=== PATIENT | female | born 1935 | race Caucasian/White ===

== ENCOUNTER → 2016-09-02 | Outpatient (CLI) | payer OTHER, MEDICARE ==
--- NOTE | 2016-09-02 20:10 | DX ---
Lumbar Spine, Four Views, Including Flexion and Extension History: Previous lumbar fusion. Technique: AP, lateral neutral, lateral flexion, and lateral extension views of the lumbar spine. Comparison: March 2016. Findings: Mild dextroscoliosis. Bilateral transpedicular screws and fusion rods at the L1, L2, L3, L4, and L5 levels, with hardware appearing intact. Interspinous expanders at L4-L5 and L5-S1. Flexi on and extension views demonstrate no evidence of instability. Interbody grafts from L1-L2 through L 4-L5. Mild compression deformity of the L5 vertebral body appears similar to the previous study. Impression: L1-L5 diskectomies and posterior fusion, without definite instability on the flexion and extension views.
== END ==
LOC: FIMAGING 14:03
PROVIDERS: ATTEND Physician Assistant Surgical
DX: M43.26 Fusion of spine, lumbar region (principal)

== ENCOUNTER → 2016-09-06 | Outpatient (CLI) | payer OTHER, MEDICARE ==
--- NOTE | 2016-09-06 12:03 | US ---
Limited Right Upper Quadrant Ultrasound History: Right upper quadrant pain. Comparison: None available. Findings: There is a homogeneous echogenic 2.7 x 2.0 x 2.1 cm structure in the right hepatic lobe. Th e liver is otherwise normal. There is no intrahepatic biliary dilatation. The common bile duct measur es 5 mm and is normal. The gallbladder is normal. The right kidney measures approximately 9.6 cm and has normal echotexture and contour without hydronephrosis. The inferior pole of the right kidney is p artially obscured by bowel gas. The visible aorta is normal caliber with moderate atherosclerosis. Th e visible portions of the pancreas are normal with limited visualization of the pancreatic head and t ail. Impression: 1. No visible etiology for the patient's pain. 2. 2.7 cm echogenic right hepatic mass statistically likely to represent a hemangioma, however, incom pletely characterized by ultrasound. Contrast-enhanced MR or multiphasic CT could be performed for de finitive characterization. 3. Aortic atherosclerosis.
== END ==
LOC: CIMAGING 10:13
PROVIDERS: ATTEND Internal Medicine Gastroenterology
DX: R16.0 Hepatomegaly, not elsewhere classified (principal); I70.0 Atherosclerosis of aorta; R10.11 Right upper quadrant pain
CPT/HCPCS: 76705-PO

== ENCOUNTER → 2017-04-21 | Outpatient (CLI) | payer OTHER, MEDICARE | LOC: CIMAGING 09:24 | PROVIDERS: ATTEND Internal Medicine | DX: M17.12 Unilateral primary osteoarthritis, left knee (principal); E03.9 Hypothyroidism, unspecified; I10 Essential (primary) hypertension | CPT/HCPCS: 73560-PO; 80053-PO; 80061-PO; 84443-PO; 90662-PO; G0008-PO ==

== ENCOUNTER → 2017-08-20 | Outpatient (CLI) | payer OTHER, MEDICARE | LOC: FIMAGING 14:39 | PROVIDERS: ATTEND Physician Assistant Surgical | DX: Z98.1 Arthrodesis status (principal) ==

== ENCOUNTER → 2017-09-12 | Outpatient (CLI) | payer OTHER, MEDICARE ==
[~2017-09-12] MED LIST: GADOBUTROL 10 ML VIAL IVP ONE
== END ==
LOC: FIMAGING 14:11
PROVIDERS: ATTEND Physician Assistant Surgical
DX: M51.26 Other intervertebral disc displacement, lumbar region (principal); R16.0 Hepatomegaly, not elsewhere classified; Z98.1 Arthrodesis status
CPT/HCPCS: 72158; A9585

== ENCOUNTER 2017-11-17 15:45 | Inpatient (IN) | payer OTHER, MEDICARE ==
[2017-11-18] MEDS ORDERED: MAGNESIUM HYDROXIDE 30 ML UDCUP PO PRN (17:58)
[2017-11-18] MEDS ORDERED: LACTULOSE 20 GM/30 ML UDCUP PO PRN (17:58)
[2017-11-18] MEDS ORDERED: diphenhydrAMINE 25 MG CAP PO PRN (17:58)
[2017-11-18] MEDS ORDERED: BISACODYL 10 MG SUPP PR PRN (17:58)
[2017-11-18] MEDS: METHOCARBAMOL 750 MG TAB PO PRN (18:51)
[2017-11-18] MEDS: SENNOSIDES/DOCUSATE SODIUM TAB PO SCH (20:10)
[2017-11-18] MEDS: CHOLECALCIFEROL VIT D3 1,000 UNITS TAB PO SCH (20:10)
[2017-11-18] MEDS: FAMOTIDINE 20 MG TAB PO SCH (20:10)
[2017-11-18] MEDS: oxyCODONE IR 5 MG TAB PO PRN ×2 (21:30→23:20)
[2017-11-18] MEDS: ACETAMINOPHEN 325 MG TAB PO SCH (21:30)
[2017-11-18] MEDS: ONDANSETRON DISINTEGRATING 4 MG TAB PO PRN (21:30)
[2017-11-18] MEDS: POLYETHYLENE GLYCOL 3350 17 GM PKT PO SCH (21:30)
[2017-11-18] MEDS ORDERED: ceFAZolin 2 GM/DEXTROSE 100 ML IV SCH (22:00)
[2017-11-18] MEDS: ceFAZolin 2 GM/SWFI 2 GM/20 ML SYR IVP SCH (23:19)
[2017-11-19 05:10] LABS: PLATELET COUNT 192 10^3/uL (150-400)
[2017-11-19] MEDS: LEVOTHYROXINE 100 MCG TAB PO SCH (05:32)
[2017-11-19] MEDS: METHOCARBAMOL 750 MG TAB PO PRN ×3 (05:32→18:38)
[2017-11-19] MEDS: FAMOTIDINE 20 MG TAB PO SCH (06:19)
[2017-11-19] MEDS: ceFAZolin 2 GM/SWFI 2 GM/20 ML SYR IVP SCH (06:36)
--- NOTE | 2017-11-19 07:56 | SOAPPROG ---
SOAP Progress Note Assessment/Plan: Assessment: 82 yo female transferred [place] [facility] [place] after left L5/S1 BETSY and L4/5 hardware removal complicated by durotomy. Doing well today with no ESCALANTE and no evidence of leak from incision. Plan: OK for patient to take her home GERD meds Keep HOB flat until further notice from Neurosurgery Use bedpan PRN Monitor incision frequently for leak 11/19/17 07:53 11/19/17 08:23 Subjective: lying flat in bed, awake, alert, pain controlled, no ESCALANTE. Oriented x 4 Objective: Vital Signs Temp Pulse Resp BP Pulse Ox 36.9 C 71 17 160/68 H 94 11/19/17 04:00 11/19/17 04:00 11/19/17 04:00 11/19/17 04:00 11/19/17 04:00 Laboratory Results 11/19/17 04:52 11/19/17 04:52 11/18/17 11/19/17 11/20/17 05:59 05:59 05:59 Intake Total 120 Output Total 750 Balance -630 Neuro: WERNER, sens +LT follows commands speech clear Incision: CDI, no evidence of leak ICD10 Worksheet Patient Problems: Problems Problem Status Onset Fusion of lumbar spine Acute
[2017-11-19] MEDS: ONDANSETRON DISINTEGRATING 4 MG TAB PO PRN ×2 (08:59→15:16)
[2017-11-19] MEDS ORDERED: FAMOTIDINE 20 MG TAB PO SCH (09:00)
[2017-11-19] MEDS ORDERED: PANTOPRAZOLE SODIUM 40 MG TAB PO SCH (09:00)
[2017-11-19] MEDS: oxyCODONE IR 5 MG TAB PO PRN ×3 (09:02→20:43)
[2017-11-19] MEDS: ACETAMINOPHEN 325 MG TAB PO SCH ×3 (09:04→20:42)
[2017-11-19] MEDS: IRBESARTAN 150 MG TAB PO SCH (09:07)
[2017-11-19] MEDS: amLODIPine BESYLATE 5 MG TAB PO SCH (09:08)
[2017-11-19] MEDS: CYANO/VITAMIN B12 1000 MCG TAB PO SCH (09:08)
[2017-11-19] MEDS: SENNOSIDES/DOCUSATE SODIUM TAB PO SCH ×2 (09:09→20:42)
[2017-11-19] MEDS: POLYETHYLENE GLYCOL 3350 17 GM PKT PO SCH ×3 (09:10→20:43)
[2017-11-19] MEDS: ENOXAPARIN 40 MG/0.4 ML SYR SC SCH (09:10)
--- NOTE | 2017-11-19 09:43 | ASMTCMCOM ---
CM Note CM Note Notes: Pt in for back surgery, per RN will need to lay flat for a few days until further notice from neurology. Pt lives at home w/, CM w/f. DC Plan: TBD Date Signed: 11/19/2017 09:42 AM Electronically Signed By:Linda Olivo RN
--- NOTE | 2017-11-19 10:31 | PDMN ---
Medical Necessity Medical necessity: est los>2mn s/p L L5/S1 BETSY and L4/5 hardware removal at [facility] [place] , complicated by durotomy; admit with HOB flat, frequent monitoring of incision for leak, and frequent neuro checks; per order and progress note 11/18/17
[2017-11-19] MEDS: CHOLECALCIFEROL VIT D3 1,000 UNITS TAB PO SCH (20:42)
[2017-11-19] MEDS: ONDANSETRON 4 MG/2 ML VIAL IVP PRN (20:43)
[2017-11-19] MEDS: Ranitidine Hcl [Zantac] 300 MG PO SCH (20:44)
[2017-11-20] MEDS: ONDANSETRON DISINTEGRATING 4 MG TAB PO PRN (02:22)
[2017-11-20] MEDS: oxyCODONE IR 5 MG TAB PO PRN ×4 (02:22→16:45)
[2017-11-20] MEDS: LEVOTHYROXINE 100 MCG TAB PO SCH (06:22)
--- NOTE | 2017-11-20 06:51 | NEUSURGPN ---
Date of Surgery: 11/18/17 Post Op Day: 2 Assessment/Plan: Assessment: 82 yo female transferred from [facility] [place] on 11/18/17 after left L5/S1 BETSY and L4/5 hardware removal complicated by durotomy POD #2 Plan: -doing well today with no ESCALANTE and no evidence of leak from incision -CDI -OK for patient to take her home GERD meds -keep HOB flat until further notice from Neurosurgery-likely for 1 week -ok to log roll -use bedpan PRN -d/w Dr Carroll -call with any questions or concerns -monitor incision frequently for leak -pt understands and agrees Subjective: Awake and alert. NAD. Eating/drinking and voiding. No f/c/n/v/d. Objective: AAO x 3, PERRLA/EOMI no droop CN 2-12 grossly intact +lt touch MARGA x 4 CDI Neuro Check Frequency: per routine Urinary Catheter in Place: No - Physician Discussed Patient with : Jose Alberto Patient Seen by : Jose Alberto Neurosurgery Physical Exam - Vitals, I&O, Labs I and O 11/19/17 11/20/17 11/21/17 05:59 05:59 05:59 Intake Total 120 1050 Output Total 750 1750 Balance -630 -700 Weight 51.71 kg Intake: Oral (ml) 120 1050 Output: Urine (ml) 750 1750 Bedpan 750 1750 Other: Intake Quantity Yes Yes Sufficient Number of Voids Bedpan 1 1 Vital Signs Temp Pulse Resp BP Pulse Ox 36.8 C 68 16 133/63 H 93 11/20/17 03:37 11/20/17 03:37 11/20/17 03:37 11/20/17 03:37 11/20/17 03:37 Laboratory Results 11/19/17 04:52 11/19/17 04:52 ICD10 Worksheet Patient Problems: Problems Problem Status Onset Fusion of lumbar spine Acute
[2017-11-20] MEDS: SENNOSIDES/DOCUSATE SODIUM TAB PO SCH ×2 (08:24→21:53)
[2017-11-20] MEDS: ENOXAPARIN 40 MG/0.4 ML SYR SC SCH (08:24)
[2017-11-20] MEDS: CYANO/VITAMIN B12 1000 MCG TAB PO SCH (08:25)
[2017-11-20] MEDS: POLYETHYLENE GLYCOL 3350 17 GM PKT PO SCH ×4 (08:25→21:53)
[2017-11-20] MEDS: IRBESARTAN 150 MG TAB PO SCH (08:25)
[2017-11-20] MEDS: ACETAMINOPHEN 325 MG TAB PO SCH ×3 (08:26→22:02)
[2017-11-20] MEDS: amLODIPine BESYLATE 5 MG TAB PO SCH (08:26)
[2017-11-20] MEDS: OMEPRAZOLE 20 MG PO SCH (08:30)
[2017-11-20] MEDS: METHOCARBAMOL 750 MG TAB PO PRN ×3 (08:33→18:39)
[2017-11-20] MEDS: CHOLECALCIFEROL VIT D3 1,000 UNITS TAB PO SCH (21:51)
[2017-11-20] MEDS: Ranitidine Hcl [Zantac] 300 MG PO SCH (21:51)
[2017-11-21] MEDS: oxyCODONE IR 5 MG TAB PO PRN ×4 (01:50→21:59)
[2017-11-21] MEDS: METHOCARBAMOL 750 MG TAB PO PRN ×3 (01:50→21:59)
[2017-11-21] MEDS: ONDANSETRON DISINTEGRATING 4 MG TAB PO PRN ×2 (01:54→17:06)
[2017-11-21] MEDS: LEVOTHYROXINE 100 MCG TAB PO SCH (05:52)
--- NOTE | 2017-11-21 07:42 | SOAPPROG ---
SOAP Progress Note Assessment/Plan: Post Op Day: 3 Assessment/Plan: Assessment: 82 yo female transferred from [facility] [place] on 11/18/17 after left L5/S1 BETSY and L4/5 hardware removal complicated by durotomy Plan: -doing well today with no ESCALANTE and no evidence of leak from incision -CDI -will consider using Advil or Toradol for general achiness -keep HOB flat until 11/25 -ok to log roll -use bedpan PRN -call with any questions or concerns -monitor incision frequently for leak -pt understands and agrees Subjective: Awake and alert. NAD. Eating/drinking and voiding. Objective: AAO x 3, PERRLA/EOMI no droop CN 2-12 grossly intact +lt touch MARGA x 4 CDI 11/21/17 07:42 Objective: Vital Signs Temp Pulse Resp BP Pulse Ox 36.7 C 72 16 148/65 H 95 11/20/17 23:45 11/20/17 23:45 11/20/17 23:45 11/20/17 23:45 11/20/17 23:45 Laboratory Results 11/19/17 04:52 11/19/17 04:52 11/20/17 11/21/17 11/22/17 05:59 05:59 05:59 Intake Total 1050 850 Output Total 1750 1325 Balance -700 -475 incision: CDI, no leak ICD10 Worksheet Patient Problems: Problems Problem Status Onset Fusion of lumbar spine Acute
[2017-11-21] MEDS: CYANO/VITAMIN B12 1000 MCG TAB PO SCH (10:15)
[2017-11-21] MEDS: SENNOSIDES/DOCUSATE SODIUM TAB PO SCH ×2 (10:15→21:58)
[2017-11-21] MEDS: amLODIPine BESYLATE 5 MG TAB PO SCH (10:15)
[2017-11-21] MEDS: ACETAMINOPHEN 325 MG TAB PO SCH ×3 (10:15→21:59)
[2017-11-21] MEDS: IRBESARTAN 150 MG TAB PO SCH (10:16)
[2017-11-21] MEDS: ENOXAPARIN 40 MG/0.4 ML SYR SC SCH (10:16)
[2017-11-21] MEDS: POLYETHYLENE GLYCOL 3350 17 GM PKT PO SCH ×3 (10:16→22:00)
[2017-11-21] MEDS: OMEPRAZOLE 20 MG PO SCH (10:23)
[2017-11-21] MEDS: CHOLECALCIFEROL VIT D3 1,000 UNITS TAB PO SCH (21:59)
[2017-11-21] MEDS: Ranitidine Hcl [Zantac] 300 MG PO SCH (22:06)
[2017-11-21] MEDS: ONDANSETRON 4 MG/2 ML VIAL IVP PRN (23:22)
[2017-11-22] MEDS: LEVOTHYROXINE 100 MCG TAB PO SCH (05:11)
[2017-11-22] MEDS: ONDANSETRON 4 MG/2 ML VIAL IVP PRN ×2 (05:11→18:24)
[2017-11-22] MEDS: ENOXAPARIN 40 MG/0.4 ML SYR SC SCH (08:14)
[2017-11-22] MEDS: CYANO/VITAMIN B12 1000 MCG TAB PO SCH (08:16)
[2017-11-22] MEDS: SENNOSIDES/DOCUSATE SODIUM TAB PO SCH ×2 (08:16→20:17)
[2017-11-22] MEDS: IRBESARTAN 150 MG TAB PO SCH (08:17)
[2017-11-22] MEDS: ACETAMINOPHEN 325 MG TAB PO SCH ×3 (08:17→20:14)
[2017-11-22] MEDS: amLODIPine BESYLATE 5 MG TAB PO SCH (08:17)
[2017-11-22] MEDS: OMEPRAZOLE 20 MG PO SCH (08:18)
[2017-11-22] MEDS: POLYETHYLENE GLYCOL 3350 17 GM PKT PO SCH ×3 (08:18→20:17)
[2017-11-22] MEDS: METHOCARBAMOL 750 MG TAB PO PRN ×2 (08:23→18:24)
[2017-11-22] MEDS: oxyCODONE IR 5 MG TAB PO PRN (08:23)
--- NOTE | 2017-11-22 08:58 | SOAPPROG ---
SOAP Progress Note Assessment/Plan: Post Op Day: 4 Assessment/Plan: Assessment: 82 [place] [facility] [place] left L5/S1 BETSY and L4/5 hardware removal complicated by durotomy Plan: -doing well today with no ESCALANTE and no evidence of leak from incision -pt got out of bed last night, no new issues -will consider using Advil or Toradol for general achiness -keep HOB flat until 11/25 -ok to log roll -use bedpan PRN -call with any questions or concerns -monitor incision frequently for leak -pt understands and agrees Subjective: Awake and alert. NAD. Eating/drinking and voiding. Objective: AAO x 3, PERRLA/EOMI no droop CN 2-12 grossly intact +lt touch MARGA x 4 incision: Dry Objective: Vital Signs Temp Pulse Resp BP Pulse Ox 37.0 C 99 18 136/72 H 98 11/22/17 07:24 11/22/17 07:24 11/22/17 07:24 11/22/17 07:24 11/22/17 07:24 Laboratory Results 11/19/17 04:52 11/19/17 04:52 11/21/17 11/22/17 11/23/17 05:59 05:59 05:59 Intake Total 850 300 Output Total 1325 Balance -475 300 ICD10 Worksheet Patient Problems: Problems Problem Status Onset Fusion of lumbar spine Acute
--- NOTE | 2017-11-22 14:10 | ASMTCMCOM ---
CM Note CM Note Notes: Pt still HOB flat until 11/25. Pt may need SNF. D/c needs TBD. CM to follow. Date Signed: 11/22/2017 02:09 PM Electronically Signed By:CROW Freeman
[2017-11-22] MEDS: ONDANSETRON DISINTEGRATING 4 MG TAB PO PRN (14:41)
[2017-11-22 16:15] LABS: PLATELET COUNT 220 10^3/uL (150-400)
[2017-11-22] MEDS ORDERED: SIMETHICONE DROPS 30 ML BOTTLE PO PRN (17:40)
[2017-11-22] MEDS: SIMETHICONE 80 MG TAB CHEW PO PRN (18:24)
[2017-11-22] MEDS: SODIUM CHLORIDE 1,000 MG TAB PO SCH (18:24)
[2017-11-22] MEDS: KETOROLAC 15 MG/1 ML SDV IVP PRN (18:24)
[2017-11-22] MEDS: CHOLECALCIFEROL VIT D3 1,000 UNITS TAB PO SCH (20:17)
[2017-11-22] MEDS: Ranitidine Hcl [Zantac] 300 MG PO SCH (20:18)
[2017-11-23] MEDS: METHOCARBAMOL 750 MG TAB PO PRN (05:51)
[2017-11-23] MEDS: KETOROLAC 15 MG/1 ML SDV IVP PRN (05:51)
[2017-11-23] MEDS: LEVOTHYROXINE 100 MCG TAB PO SCH (05:51)
[2017-11-23] MEDS: OMEPRAZOLE 20 MG PO SCH (05:53)
[2017-11-23] MEDS: ENOXAPARIN 40 MG/0.4 ML SYR SC SCH (08:59)
[2017-11-23] MEDS: SODIUM CHLORIDE 1,000 MG TAB PO SCH ×3 (09:00→18:09)
[2017-11-23] MEDS: amLODIPine BESYLATE 5 MG TAB PO SCH (09:00)
[2017-11-23] MEDS: SIMETHICONE 80 MG TAB CHEW PO PRN (09:00)
[2017-11-23] MEDS: CYANO/VITAMIN B12 1000 MCG TAB PO SCH (09:00)
[2017-11-23] MEDS: IRBESARTAN 150 MG TAB PO SCH (09:01)
[2017-11-23] MEDS: ACETAMINOPHEN 325 MG TAB PO SCH ×3 (09:01→22:50)
[2017-11-23] MEDS: POLYETHYLENE GLYCOL 3350 17 GM PKT PO SCH ×3 (09:40→23:00)
[2017-11-23] MEDS: SENNOSIDES/DOCUSATE SODIUM TAB PO SCH ×2 (09:40→23:00)
--- NOTE | 2017-11-23 10:40 | SOAPPROG ---
SOAP Progress Note Assessment/Plan: Post Op Day: 5 Assessment/Plan: Assessment: 82 yo female transferred from [facility] [place] on 11/18/17 after left L5/S1 BETSY and L4/5 hardware removal complicated by durotomy Plan: -doing well today with no ESCALANTE and no evidence of leak from incision -May use Advil or Toradol for general achiness -keep HOB flat until 11/25 (Friday) -ok to log roll -use bedpan PRN -call with any questions or concerns -monitor incision frequently for leak -pt understands and agrees Subjective: Awake and alert. NAD. Eating/drinking and voiding. Objective: AAO x 3, PERRLA/EOMI no droop CN 2-12 grossly intact +lt touch MARGA x 4 incision: Dry Abdominal xray yesterday did not show ileus Objective: Vital Signs Temp Pulse Resp BP Pulse Ox 36.8 C 69 16 156/71 H 99 11/23/17 07:14 11/23/17 07:14 11/23/17 07:14 11/23/17 09:01 11/23/17 07:14 Laboratory Results 11/22/17 12:20 11/23/17 04:47 11/22/17 11/23/17 11/24/17 05:59 05:59 05:59 Intake Total 300 Output Total 1450 Balance -1150 ICD10 Worksheet Patient Problems: Problems Problem Status Onset Fusion of lumbar spine Acute
[2017-11-23] MEDS: CALCIUM CARBONATE 500 MG CHEWABLE TAB PO PRN ×2 (13:21→19:25)
[2017-11-23] MEDS: Ranitidine Hcl [Zantac] 300 MG PO SCH (22:51)
[2017-11-23] MEDS: CHOLECALCIFEROL VIT D3 1,000 UNITS TAB PO SCH (22:51)
[2017-11-24] MEDS: LEVOTHYROXINE 100 MCG TAB PO SCH (06:05)
[2017-11-24] MEDS: OMEPRAZOLE 20 MG PO SCH (06:10)
[2017-11-24] MEDS: amLODIPine BESYLATE 5 MG TAB PO SCH (08:51)
[2017-11-24] MEDS: SODIUM CHLORIDE 1,000 MG TAB PO SCH ×3 (08:51→16:28)
[2017-11-24] MEDS: IRBESARTAN 150 MG TAB PO SCH (08:51)
[2017-11-24] MEDS: CYANO/VITAMIN B12 1000 MCG TAB PO SCH (08:51)
[2017-11-24] MEDS: ACETAMINOPHEN 325 MG TAB PO SCH ×3 (08:51→23:03)
[2017-11-24] MEDS: POLYETHYLENE GLYCOL 3350 17 GM PKT PO SCH ×3 (08:52→20:26)
[2017-11-24] MEDS: ENOXAPARIN 40 MG/0.4 ML SYR SC SCH (08:52)
[2017-11-24] MEDS: SENNOSIDES/DOCUSATE SODIUM TAB PO SCH ×2 (08:52→20:26)
--- NOTE | 2017-11-24 11:36 | NEUSURGPN ---
Assessment/Plan: Assessment/Plan: Assessment: 82 [place] [facility] [place] left L5/S1 BETSY and L4/5 hardware removal complicated by durotomy Plan: -doing well today with no ESCALANTE and no evidence of leak from incision -May raise HOB today more each hour. if no headache, may get out of bed once at 50 degrees and start PT/OT -May use Advil or Toradol for general achiness -call with any questions or concerns -monitor incision frequently for leak -Patient discussed with Dr. Carroll Subjective: Doing well, eager to get up. No leg pain. Objective: AAO x 3, PERRLA/EOMI no droop CN 2-12 grossly intact +lt touch MARGA x 4 incision: Dry - Physician Discussed Patient with : Jose Alberto Patient Seen by : Jose Alberto Neurosurgery Physical Exam - Vitals, I&O, Labs I and O 11/23/17 11/24/17 11/25/17 05:59 05:59 05:59 Intake Total 300 675 350 Output Total 1450 301 Balance -1150 374 350 Intake: Oral (ml) 300 675 350 Output: Urine (ml) 850 301 Bedpan 850 301 Emesis (ml) 600 Other: Intake Quantity Yes Sufficient Number of Voids Bedpan 3 1 1 Number of Stools Bedpan 1 1 1 Number of Emesis 1 Occurrences Vital Signs Temp Pulse Resp BP Pulse Ox 36.8 C 67 16 168/72 H 94 11/24/17 08:00 11/24/17 08:00 11/24/17 08:00 11/24/17 08:51 11/24/17 08:00 Laboratory Results 11/22/17 12:20 11/23/17 04:47 ICD10 Worksheet Patient Problems: Problems Problem Status Onset Fusion of lumbar spine Acute
[2017-11-24] MEDS: SIMETHICONE 80 MG TAB CHEW PO PRN (11:39)
[2017-11-24] MEDS: CHOLECALCIFEROL VIT D3 1,000 UNITS TAB PO SCH (20:25)
[2017-11-24] MEDS: Ranitidine Hcl [Zantac] 300 MG PO SCH (20:27)
[2017-11-25] MEDS: LEVOTHYROXINE 100 MCG TAB PO SCH (05:00)
--- NOTE | 2017-11-25 07:14 | NEUSURGPN ---
Date of Surgery: 11/18/17 Post Op Day: 7 Assessment/Plan: Assessment: 82 yo female transferred from [facility] [place] on 11/18/17 after left L5/S1 BETSY and L4/5 hardware removal complicated by durotomy POD #7 Plan: -doing well today with no ESCALANTE and no evidence of leak from incision, no positional headaches -tolerating walking around room -pt understands to not bend or twist and no lifting -continue with PT/OT -May use Advil for general achiness if needed -call with any questions or concerns -monitor incision frequently for leak -Patient discussed with Dr. Carroll -plan for dc later today if clears from RN and PT/OT Subjective: Awake and alert. NAD. Eating/drinking and voiding. No escalante/neck/chest/abd or gu complaints. No f/c/n/v/d. Objective: AAO x 3, PERRLA/EOMI no droop CN 2-12 grossly intact +lt touch 5/5 BUE/BLE = CDI Neuro Check Frequency: per routine Urinary Catheter in Place: No - Physician Discussed Patient with DrJosué: Jose Alberto Neurosurgery Physical Exam - Vitals, I&O, Labs I and O 11/24/17 11/25/17 11/26/17 05:59 05:59 05:59 Intake Total 675 350 Output Total 301 Balance 374 350 Intake: Oral (ml) 675 350 Output: Urine (ml) 301 Bedpan 301 Other: Number of Voids Bedpan 1 1 Toilet 1 Number of Stools Bedpan 1 1 Vital Signs Temp Pulse Resp BP Pulse Ox 36.9 C 73 18 166/78 H 96 11/25/17 00:00 11/25/17 00:00 11/25/17 00:00 11/25/17 00:00 11/25/17 00:00 Laboratory Results 11/22/17 12:20 11/23/17 04:47 ICD10 Worksheet Patient Problems: Problems Problem Status Onset Fusion of lumbar spine Acute
[2017-11-25 07:54] VITALS: BP 169/79
[2017-11-25] MEDS: IRBESARTAN 150 MG TAB PO SCH (10:05)
[2017-11-25] MEDS: CYANO/VITAMIN B12 1000 MCG TAB PO SCH (10:05)
[2017-11-25] MEDS: amLODIPine BESYLATE 5 MG TAB PO SCH (10:06)
[2017-11-25] MEDS: ENOXAPARIN 40 MG/0.4 ML SYR SC SCH (10:06)
[2017-11-25] MEDS: ACETAMINOPHEN 325 MG TAB PO SCH (10:07)
[2017-11-25] MEDS: SODIUM CHLORIDE 1,000 MG TAB PO SCH ×2 (10:10→13:01)
[2017-11-25] MEDS: OMEPRAZOLE 20 MG PO SCH (10:13)
--- NOTE | 2017-11-25 10:16 | PDIAF ---
- Diagnosis Diagnosis: s/p lumbar decompression Code Status: Full Code - Medication Management Discharge Medications: Medications to Continue on Transfer Irbesartan [Avapro 150 mg (*)] 150 mg PO DAILY 08/17/15 [Last Taken 09/07/15 05: 30] Omeprazole [Prilosec 20 mg] 20 mg PO DAILY 08/17/15 [Last Taken 09/07/15 05:30] amLODIPine BESYLATE [Norvasc 5 mg (*)] 5 mg PO DAILY 08/17/15 [Last Taken 05:30] Acetaminophen [Tylenol 325mg (*)] 650 mg PO TID 11/14/17 [Last Taken Unknown] Cholecalciferol Vit D3 [Vitamin D3 (*)] 5,000 units PO HS 11/14/17 [Last Taken Unknown] Cyanocobalamin [Vitamin B12 (*)] 1,000 mcg PO DAILY 11/14/17 [Last Taken Unknown ] Levothyroxine [Synthroid 100 mcg (*)] 100 mcg PO DAILY06 11/14/17 [Last Taken Unknown] Ranitidine HCl [Zantac] 300 mg PO HS 11/14/17 [Last Taken Unknown] Enoxaparin [Lovenox 40 MG (*)] 40 mg SC DAILY #5 syr 11/25/17 [Last Taken Unknown] Methocarbamol [Robaxin 750 mg (*)] 750 mg PO QID PRN #40 tab 11/25/17 [Last Taken Unknown] Ondansetron Odt [Zofran Odt 4 mg (*)] 4 - 8 mg PO Q6HRS PRN #20 tab 11/25/17 [ Last Taken Unknown] Sennosides/Docusate Sodium [Senokot-S] 1 - 2 tab PO BID #30 tab 11/25/17 [Last Taken Unknown] Sodium Chloride [Salt Tablet] 1,000 mg PO TIDMEAL tab 11/25/17 [Last Taken Unknown] oxyCODONE IR [Oxycodone Ir (*)] 5 - 10 mg PO Q4HRS PRN #40 tab 11/25/17 [Last Taken Unknown] Store Lead Antibiotics: none Discharge Medications: Refer to the Discharge Home Medication list for PRN reason. PICC Care - Routine: N/A - Orders Services needed: Physical Therapy Oxygen: to keep O2 sat above 90% Diet Recommendation: no restrictions on diet Diet Texture: Regular Texture Diet Prater: Not applicable Additional Instructions: Take medications as directed Call with any questions or concerns See Dr Carroll's team in 2-3 weeks for a recheck Check with PCP to see if need to continue with Salt Tabs - Follow Up Care Current Providers and Referrals: Genevieve Yan MD [Primary Care Provider] - Delta Abrams MD [Medical Doctor] - (follow up in 2-3 weeks)
[2017-11-25] MEDS: POLYETHYLENE GLYCOL 3350 17 GM PKT PO SCH (10:32)
[2017-11-25] MEDS: SENNOSIDES/DOCUSATE SODIUM TAB PO SCH (10:32)
--- NOTE | 2017-11-25 15:52 | ASMTCMCOM ---
CM Note CM Note Notes: Pt medically stable for d/c with [facility]. Pt confirmed address/phone. Orders sent in All[employer]. Date Signed: 11/25/2017 03:52 PM Electronically Signed By:CROW Freeman
--- NOTE | 2017-11-25 15:53 | ASDISCHSUM ---
Discharge Information Plan Status:Home with Home Health Medically Cleared to Leave: Discharge Date:11/25/2017 01:49 PM CM D/C Disposition:Home Health Service ADT D/C Disposition:Home, Routine, Self-Care Projected Discharge Date:11/25/2017 11:00 AM Transportation at D/C: Discharge Delay Reason: Follow-Up Date:11/25/2017 11:00 AM Discharge Slot: Final Diagnosis: Placement Information Referral Type:*Home Health Care Services Referral ID:[id number] Provider Name:[facility] [place] Address 1:[address] [place] [address] Address 2: City:[place] Selection Factors: State:[place] Patient Contact Information Contact Name:ABRAHAM Relationship: Address:[address] [place] City:[place] Alternate Phone: State/Zip Code:[place] [address] Email: Financial Information Financial Class:Medicare Primary Plan Desc:MEDICARE INPATIENT Primary Plan Number:[id number] Secondary Plan Desc:[employer]/MDR SUPPLEMENT Secondary Plan Number:[id number] Assessment Information [facility] CM Progress Note CM Note CM Note Notes: Pt in for back surgery, per RN will need to lay flat for a few days until further notice from neurology. Pt lives at home w/, JENNIFER w/f. DC Plan: TBD Date Signed: 11/19/2017 09:42 AM Electronically Signed By:Linda Olivo RN BC CM Progress Note CM Note CM Note Notes: Pt still HOB flat until 11/25. Pt may need SNF. D/c needs TBD. CM to follow. Date Signed: 11/22/2017 02:09 PM Electronically Signed By:CROW Freeman BC CM Progress Note CM Note CM Note Notes: Pt medically stable for d/c with [facility]. Pt confirmed address/phone. Orders sent in Allscripts. Date Signed: 11/25/2017 03:52 PM Electronically Signed By:CROW Freeman Intervention Information Intervention Type:*IM-Signed Date of Service:11/25/2017 10:45 AM Patient Type:Inpatient Staff Member:Geraldine Hsieh Hours: Discipline: Severity: Comment:
== END 2017-11-25 13:49 | disposition home health service (06) | DRG 561 ==
LOC: F3N 11-18 16:13 → OBSVTOIN 11-18 16:13
PROVIDERS: ADMIT Neurological Surgery; ATTEND Neurological Surgery
DX: Z47.89 Encounter for other orthopedic aftercare (principal); K21.9 Gastro-esophageal reflux disease without esophagitis; E03.9 Hypothyroidism, unspecified; I10 Essential (primary) hypertension
CPT/HCPCS: 97116-GP; 97161-GP; 97165-GO; 97530-GP; 97535-GO; G8978-GP-CJ; G8979-GP-CI; G8987-GO-CI; G8988-GO-CI; G8989-GO-CI; J0690; J1650; J1885; J2405

== ENCOUNTER → 2018-03-31 | Outpatient (CLI) | payer OTHER, MEDICARE | LOC: FIMAGING 12:03 → EDSTATUS 12:08 | PROVIDERS: ATTEND Physician Assistant Surgical | DX: Z09 Encounter for follow-up examination after completed treatment for conditions other than malignant neoplasm (principal); Z98.1 Arthrodesis status; M51.35 Other intervertebral disc degeneration, thoracolumbar region; M51.37 Other intervertebral disc degeneration, lumbosacral region ==

== ENCOUNTER → 2018-04-08 | Outpatient (CLI) | payer OTHER, MEDICARE | LOC: FIMAGING 09:32 | PROVIDERS: ATTEND Physician Assistant Surgical | DX: M48.07 Spinal stenosis, lumbosacral region (principal); M51.37 Other intervertebral disc degeneration, lumbosacral region; M51.35 Other intervertebral disc degeneration, thoracolumbar region; K76.89 Other specified diseases of liver | CPT/HCPCS: 72158; A9585; 82565-PO ==

== ENCOUNTER → 2018-05-16 | Outpatient (CLI) | payer OTHER, MEDICARE | LOC: FIMAGING 11:00 | PROVIDERS: ATTEND Physician Assistant Surgical | DX: Z01.818 Encounter for other preprocedural examination (principal); M51.06 Intervertebral disc disorders with myelopathy, lumbar region ==

== ENCOUNTER 2018-05-18 12:00 | Inpatient (IN) | payer OTHER, MEDICARE ==
[~2018-05-18 12:00] MED LIST changes: -GADOBUTROL 10 ML VIAL IVP ONE; +TRANEXAMIC ACID 1,000 MG in NS 100 ML IV ONE
[2018-08-19] MEDS ORDERED: ACETAMINOPHEN 500 MG TAB PO ONE (16:33)
[2018-08-19] MEDS ORDERED: GABAPENTIN 300 MG CAP PO ONE (16:33)
[2018-08-19] MEDS ORDERED: fentaNYL 50 MCG in SYRINGE INTRATHECAL 1 SYR IT ONE (16:33)
[2018-08-19] MEDS ORDERED: ceFAZolin 2 GM/DEXTROSE 100 ML IV ONE (16:33)
[2018-08-19] MEDS ORDERED: morphINE PF 0.2 MG in SYRINGE INTRATHECAL 1 SYR IT ONE (16:33)
[2018-08-25] MEDS ORDERED: LR 1,000 ML IV ONE (10:38)
[2018-08-25 11:43] LABS: PLATELET COUNT 234 10^3/uL (150-400)
[2018-08-25] MEDS ORDERED: THROMBIN (BOVINE) 20,000 UNIT VIAL TP ONE (12:16)
[2018-08-25] MEDS ORDERED: CHLORHEXIDINE GLUC HIBICLENS 118 ML BTL TP ONE (12:16)
[2018-08-25] MEDS ORDERED: BUPIVACAINE 0.25% 30 ML SDV ONE (12:17)
[2018-08-25] MEDS ORDERED: CITRATE DEXTROSE SOLN 500 ML BAG ONE ×2 (12:17→17:05)
[2018-08-25] MEDS ORDERED: EPINEPHrine 1 MG/ML INJ ONE (12:18)
[2018-08-25] MEDS ORDERED: BACITRACIN 50,000 UNITS/10 ML SYR IRR ONE ×2 (12:18→12:23)
[2018-08-25] MEDS ORDERED: GABAPENTIN 300 MG CAP PO ONE (12:30)
[2018-08-25] MEDS ORDERED: ACETAMINOPHEN 500 MG TAB PO ONE (12:30)
[2018-08-25] MEDS ORDERED: TRANEXAMIC ACID 1,000 MG in NS 100 ML IV ONE (12:30)
[2018-08-25] MEDS ORDERED: fentaNYL 50 MCG in SYRINGE INTRATHECAL 1 SYR IT ONE (12:30)
[2018-08-25] MEDS ORDERED: morphINE PF 0.2 MG in SYRINGE INTRATHECAL 1 SYR IT ONE (12:30)
[2018-08-25] MEDS ORDERED: ceFAZolin 2 GM/DEXTROSE 100 ML IV ONE (12:30)
--- NOTE | 2018-08-25 13:46 | PDHPUP ---
History & Physical Update H&P update statement: This history and physical update is based on an assessment of the patient which was completed after admission or registration (within 24 hours), but prior to the surgery/procedure. H&P update: H&P reviewed & patient examined, changes noted (increased right leg pain)
[2018-08-25] MEDS ORDERED: HYDROmorphONE/DILAUDID 1 MG/ML INJ IVP PRN (14:07)
[2018-08-25] MEDS ORDERED: BISACODYL 10 MG SUPP PR PRN (14:07)
[2018-08-25] MEDS ORDERED: diphenhydrAMINE 25 MG CAP PO PRN (14:07)
[2018-08-25] MEDS ORDERED: MAGNESIUM HYDROXIDE 30 ML UDCUP PO PRN (14:07)
[2018-08-25] MEDS ORDERED: LACTULOSE 20 GM/30 ML UDCUP PO PRN (14:07)
[2018-08-25] MEDS ORDERED: ONDANSETRON 4 MG/2 ML VIAL IVP PRN ×2 (14:07→18:15)
[2018-08-25] MEDS ORDERED: fentaNYL 250 MCG/5 ML INJ ONE (14:12)
[2018-08-25] MEDS ORDERED: PROPOFOL/EMULSION 500 MG/50 ML BOTTLE IV ONE ×2 (14:13)
[2018-08-25] MEDS ORDERED: NS 1,000 ML IV SCH (14:15)
--- NOTE | 2018-08-25 14:19 | POSTOPPROG ---
Post Op Note Date of Operation: 08/25/18 Surgeon: [facility] Office Assistant: Ren Stewart PAC Anesthesiologist: Angelique Montes/Mathew Anesthesia: GET(General Endotracheal) Pre-op Diagnosis: L5/S1 DJD, stenosis Post-op Diagnosis: same Indication: Low back and right leg pain Procedure: Hardware removal L1-5, L5/S1 TLIF Findings: L5/S1 DJD, stenosis Inf/Abcess present in the surg proc area at time of surgery?: No EBL: 100-500 Complications: None Drains: Nik Luther (to bulb suction) Specimen(s): none
--- NOTE | 2018-08-25 14:20 | SOAPPROG ---
SOAP Progress Note Assessment/Plan: post op check Assessment: Doing well status post Lumbar hardware removal L1-L5 and L5/S1 TLIF Plan: CPM in PACU ANNA to bulb suction transfer to floor per protocol Subjective: Awake, eyes open, comfortable Objective: Vital Signs Temp Pulse Resp BP Pulse Ox 36.4 C 77 20 159/79 H 97 08/25/18 11:04 08/25/18 11:04 08/25/18 11:04 08/25/18 11:04 08/25/18 11:04 Laboratory Results 08/25/18 11:30 Vitals: HR:73 BP:124/49 O2: 100% FM Neuro: Awake, eyes open, comfortable WERNER, sens +LT follows commands x 4 ICD10 Worksheet Patient Problems: Problems Problem Status Onset Fusion of lumbar spine Acute
--- NOTE | 2018-08-25 14:36 | PDANEPAE ---
ANE History of Present Illness 83 year old female for revision fusion L5-S1 and possible L1-L5 hardware removal. ANE Past Medical History - Cardiovascular History Hx Hypertension: Yes Hx Arrhythmias: Yes Hx Chest Pain: No Hx Coronary Artery / Peripheral Vascular Disease: No Hx CHF / Valvular Disease: Yes Hx Palpitations: No Cardiovascular History Comment: LBBB. DYSLIPIDEMIA. slight murmur. mitral valve prolapse. followed by [facility] - Pulmonary History Hx COPD: No Hx Asthma/Reactive Airway Disease: No Hx Recent Upper Respiratory Infection: No Hx Oxygen in Use at Home: No Hx Sleep Apnea: No Sleep Apnea Screening Result - Last Documented: Negative - Neurologic History Hx Cerebrovascular Accident: No Hx Seizures: No Hx Dementia: No Neurologic History Comment: hx of multiple back surgeries. hx of migraines - Endocrine History Hx Diabetes: No Endocrine History Comment: hypothyroidism. 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 wears glasses. OA. tinnitus. raynauds. systemic lupus - Chronic Pain History Chronic Pain: Yes (back and left knee) - Surgical History Prior Surgeries: 11/18/17 l5-s1 BETSY and l4-5 hardware removal with VVC at [facility] [place] complicated by durotomy and admit to [facility] from 11/18/17-11/25/17. 09/07/15 lumbar hardware removal with VVC. 02/15/10 l4-5 TLIF with VVC. 04/12/09 right knee manipulation with [facility]. 01/31/09 right TKA with [facility]. CARDIAC CATH . HYSTERECTOMY. VEIN LIGATION. 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 polysacchari [From Pneumovax 23] Allergy (Verified 16:20) SITE REDNESS, SORENESS Sulfa (Sulfonamide Antibiotics) Allergy (Verified 08/25/18 11:04) Hives OPIATES Allergy (Uncoded 08/24/18 16:20) SEVERE VOMITING - Home Medications Home Medications: Irbesartan [Avapro 150 mg (*)] 150 mg PO DAILY 08/17/15 [Last Taken 08/24/18] Omeprazole [Prilosec 20 mg] 20 mg PO DAILY 08/17/15 [Last Taken 08/25/18] amLODIPine BESYLATE [Norvasc 5 mg (*)] 5 mg PO DAILY 08/17/15 [Last Taken ] Acetaminophen [Tylenol 325mg (*)] 650 mg PO TID PRN 11/14/17 [Last Taken ] Cholecalciferol Vit D3 [Vitamin D3 (*)] 5,000 units PO DAILY 11/14/17 [Last Taken 08/24/18] Cyanocobalamin [Vitamin B12 (*)] 1,000 mcg PO DAILY 11/14/17 [Last Taken ] Levothyroxine [Synthroid 100 mcg (*)] 100 mcg PO DAILY06 11/14/17 [Last Taken ] celeCOXIB [CeleBREX] 100 mg PO BID 08/24/18 [Last Taken 08/23/18] - NPO status NPO Since - Liquids (Date): 08/25/18 NPO Since - Liquids (Time): 09:30 NPO Since - Solids (Date): 08/24/18 NPO Since - Solids (Time): 19:00 - Smoking Hx Smoking Status: Never smoked - Family Anes Hx Family Hx Anesthesia Complications: none ANE Labs/Vital Signs - Labs Result Diagrams: 08/25/18 11:30 - Vital Signs Blood Pressure: 159/79 Heart Rate: 77 Respiratory Rate: 20 O2 Sat (%): 97 Height: 156.21 cm Weight: 49.895 kg ANE Physical Exam - Airway Neck exam: FROM Mallampati Score: Class 2 Mouth exam: normal dental/mouth exam - Pulmonary Pulmonary: no respiratory distress - Cardiovascular Cardiovascular: regular rate and rhythym - ASA Status ASA Status: III ANE Anesthesia Plan Anesthesia Plan: general endotracheal anesthesia Lines/Monitors: arterial line
[2018-08-25] MEDS ORDERED: ALBUMIN 5% 250 ML BOTTLE IV ONE (15:25)
[2018-08-25] MEDS ORDERED: LR 500 ML IV PRN (15:30)
[2018-08-25] MEDS ORDERED: ALBUTEROL 3 ML DEYVIAL IH PRN (15:30)
[2018-08-25] MEDS ORDERED: PHENYLEPHRINE HCL 100 MCG/ML SYR IVP PRN (15:30)
[2018-08-25] MEDS ORDERED: LABETALOL HCL 5 MG/ML 20 ML MDV IVP PRN (15:30)
[2018-08-25] MEDS ORDERED: fentaNYL 100 MCG/2 ML INJ IVP PRN ×2 (15:30→18:15)
[2018-08-25] MEDS ORDERED: NALOXONE HCL 0.4 MG/ML INJ IVP PRN ×3 (15:30→18:15)
[2018-08-25] MEDS ORDERED: HYDROmorphONE/DILAUDID 2 MG/ML INJ ONE (16:58)
[2018-08-25] MEDS ORDERED: ceFAZolin 1 GM VIAL ONE (17:25)
[2018-08-25] MEDS ORDERED: SUGAMMADEX SODIUM 200 MG/2 ML VIAL IVP ONE (17:46)
[2018-08-25] MEDS ORDERED: morphINE PCA 30 MG/30 ML PCA IV PRN (17:54)
[2018-08-25] MEDS ORDERED: HYDROmorphONE/DILAUDID 2 MG/ML INJ IVP PRN (18:15)
--- NOTE | 2018-08-25 18:16 | POSTANESTH ---
Post Anesthetic Evaluation Cardiovascular Status: Similar to Pre-Op Cond Respiratory Status: Similar to Pre-op Cond. Level of Consciousness/Mental Status: Alert and Oriented Pain Control: Adequate, Prn Tx Ordered Nausea/Vomiting Control: Adequate, Prn Tx Ordered Complications Possibly Related to Anesthesia: None Noted
--- NOTE | 2018-08-25 18:41 | GOP ---
[f rep st] OPERATIVE REPORT DATE OF OPERATION: 08/25/2018 SURGEON: Delta Abrams MD NEUROSURGEON: Delta Abrams MD BUSINESS LEADER: JOVANI Mireles ANESTHESIA: General endotracheal. PREOPERATIVE DIAGNOSIS: 1. 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 2. Retained hardware. 3. Failed conservative care. 4. High risk surgical candidate given age of 83 years, comorbidities, and required surgical intervention. POSTOPERATIVE DIAGNOSIS: 1. 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 2. Retained hardware. 3. Failed conservative care. 4. High risk surgical candidate given age of 83 years, comorbidities, and required surgical intervention. PROCEDURE PERFORMED: 1. Removal of posterior segmental (pedicle screw) fixation from L1-L5 with exploration of spinal fusion and right-sided far lateral transpedicular decompression at the L5-S1 level with a redo right-sided L4-5 posterior hemilaminectomy, medial facetectomy, and foraminotomy. 2. Re instrumentation from L4-S1 with posterior segmental (pedicle screws) fixation. 3. L4-S1 posterolateral fusion with local autograft and bone morphogenic protein. 4. L5-S1 posterior/transforaminal lumbar interbody fusion with 2 structural PEEK interbody spacers, local autograft and bone morphogenic protein. 5. Use of intraoperative microscopy fluoroscopy and computer volumetric stereotactic navigation with intraoperative neurophysiologic testing. 6. Injection of intrathecal narcotic analgesics for postoperative pain control. FINDINGS: ESTIMATED BLOOD LOSS: 300 cc. INDICATIONS: The patient is an 83-year-old woman with intractable low back pain and bilateral lower extremity radicular symptoms secondary to severe adjacent level degeneration and disk space collapse with critical neural foraminal encroachment on the right greater than left at the L5-S1 level status post a prior L1-L5 decompression and stabilization with instrumentation. The patient has failed extensive conservative care and presents now for removal and replacement of instrumentation and decompression stabilization of the adjacent level. DESCRIPTION OF PROCEDURE: After informed consent was obtained, the patient was taken to the operating room and placed in the prone position on the Nik table. The thoracolumbosacral areas were prepped and draped in a sterile fashion. After fluoroscopic localization of the correct level, the subcutaneous and intramuscular tissues were infiltrated with local anesthesia. A midline linear incision was then created over the L1-S1 spinous processes. This was carried down to the fascial layer, which was then incised using monopolar electrocautery and carried in the subperiosteal plane along the spinous processes and lamina bilaterally. Intraoperative fluoroscopy was again utilized to verify the correct levels. Following this, the dissection was carried out laterally over the facet joints. The prior instrumentation was identified at L1 through L5 and removed in the standard fashion. The prior fusion was explored and inspected and noted to be solid. The microscope was then brought in and a right-sided far lateral transpedicular decompression was performed with complete unroofing of the facet joint and neural foramen at L5 and S1. A redo posterior hemilaminectomy and foraminotomy was performed at the L4-5 level, in order to ensure no residual neural foraminal encroachment and ongoing symptoms. The microscope and instruments were angled across the midline to achieve a central canal left-sided decompression as best we could as well. Following this, the pedicle screws were placed at L4, L5 and S1 on the right, and L5 and S1 on the left. Each individual screw was tested neurophysiologically with monopolar electrostimulation and interpretation of the potentials by the surgeon. Rods were then placed across L5 and S1 in a slight amount of distraction created across the interspace during which time a complete diskectomy was performed at the L5-S1 level with preparation of endplates and placement of two 10 mm structural PEEK interbody spacers, local autograft and bone morphogenic protein for an L5-S1 posterior/transforaminal lumbar interbody fusion. The rods were removed and a longer christopher, extending from L4-S1 was placed on the right and L5-S1 on the left. A slight amount of compression was created across the interspace in order to facilitate bony union and to minimize the potential for posterior graft migration. After securing the locking caps to the specified torque by the lockstitch collar setter, wound was again copiously irrigated with antibiotic irrigation. Meticulous hemostasis was achieved. Because the bone screw interface was not very strong at the S1 level and this was at the bottom of a long construct, a fusion extending from L1-S1, there was going to be an extensive amount of torque at the S1 screws and an Gerard device was placed at the L5-S1 level for added fixation in an effort to hopefully avoid a nonunion and hardware failure. The remaining lamina and facet joints were then extensively decorticated and the residual local autograft along with bone morphogenic protein was placed in it laterally for posterolateral fusion at the L5-S1 level. 200 mcg of Duramorph along with 50 mcg of fentanyl were injected intrathecally for postoperative pain control. A drain was placed and the subcutaneous and intramuscular tissues were re- infiltrated with local anesthesia. The wound was then closed in a layered fashion using interrupted Vicryl sutures, followed by Steri-Strips on the skin. COMPLICATIONS: None. DISPOSITION: The patient is currently in the process of being repositioned for extubation. /[id number]/MODL MTDD
[2018-08-25] MEDS: POLYETHYLENE GLYCOL 3350 17 GM PKT PO SCH ×2 (20:18→21:45)
[2018-08-25] MEDS: ACETAMINOPHEN 500 MG TAB PO SCH (21:43)
[2018-08-25] MEDS: FAMOTIDINE 20 MG TAB PO SCH (21:44)
[2018-08-25] MEDS: GABAPENTIN 300 MG CAP PO SCH (21:44)
[2018-08-25] MEDS: SENNOSIDES/DOCUSATE SODIUM TAB PO SCH (21:45)
[2018-08-25] MEDS: ceFAZolin 2 GM/DEXTROSE 100 ML IV SCH (22:53)
[2018-08-26] MEDS: ACETAMINOPHEN 500 MG TAB PO SCH ×3 (05:15→22:44)
[2018-08-26] MEDS: LEVOTHYROXINE 100 MCG TAB PO SCH (05:16)
[2018-08-26] MEDS: GABAPENTIN 300 MG CAP PO SCH ×3 (05:16→22:44)
[2018-08-26 05:49] LABS: PLATELET COUNT 187 10^3/uL (150-400)
[2018-08-26] MEDS: ceFAZolin 2 GM/DEXTROSE 100 ML IV SCH (06:15)
--- NOTE | 2018-08-26 07:49 | SOAPPROG ---
SOAP Progress Note Assessment/Plan: Assessment: POD #1 Doing well status post Lumbar hardware removal L1-L5 and L5/S1 TLIF Right leg pain improved pain well controlled Plan: Continue ANNA to bulb suction Xrays today to evaluate hardware Needs LSO today PT/OT 08/26/18 07:45 Subjective: Awake, alert, states she has "no pain." Denies numbness, tingling or weakness Objective: Vital Signs Temp Pulse Resp BP Pulse Ox 36.4 C 71 16 115/54 L 100 08/26/18 05:00 08/26/18 05:00 08/26/18 05:00 08/26/18 05:00 08/26/18 05:00 Laboratory Results 08/26/18 05:07 08/26/18 05:07 08/25/18 08/26/18 08/27/18 05:59 05:59 05:59 Intake Total 1900 100 Output Total 485 60 Balance 1415 40 Dressing: CDI ANNA: 60 ml Neuro: WERNER, sens +Lt follows commands 5/5 bilateral LE ICD10 Worksheet Patient Problems: Problems Problem Status Onset Fusion of lumbar spine Acute
--- NOTE | 2018-08-26 10:18 | PDMN ---
Medical Necessity Medical necessity: Pt meets IP criteria as of 08/25/2018 per and [facility] S[facility] ( lumbar fusion); Medicare IP only procedure
[2018-08-26] MEDS: FAMOTIDINE 20 MG TAB PO SCH ×2 (10:58→20:31)
[2018-08-26] MEDS: CYANO/VITAMIN B12 1000 MCG TAB PO SCH (10:59)
[2018-08-26] MEDS: CHOLECALCIFEROL VIT D3 1,000 UNITS TAB PO SCH (10:59)
[2018-08-26] MEDS: IRBESARTAN 150 MG TAB PO SCH (11:00)
[2018-08-26] MEDS: amLODIPine BESYLATE 5 MG TAB PO SCH (11:00)
[2018-08-26] MEDS: ENOXAPARIN 40 MG/0.4 ML SYR SC SCH (11:00)
[2018-08-26] MEDS: SENNOSIDES/DOCUSATE SODIUM TAB PO SCH ×2 (11:00→20:31)
[2018-08-26] MEDS: POLYETHYLENE GLYCOL 3350 17 GM PKT PO SCH ×3 (11:01→22:43)
--- NOTE | 2018-08-26 14:08 | ASMTCMCOM ---
CM Note CM Note Notes: Pt had planned surgery for lumbar stenosis, DJD L5/S1. Pt resides with spouse. PT/OT rec SNF. Pt verbalizes she does not want to go to SNF. Pt Miguel is present at bedside, he reports this is pt's fourth back surgery, each time he has taken her home and been overwhelmed and unprepared, Miguel reports he will not be able to care for pt at home now. Pt dghtr is available to help in mornings but according to Miguel that is not enough and dghtr is unaware of how hard it has been to care for pt after these surgeries. Miguel reports he has observed cognitive decline in pt over the past decade and he seems really overwhelmed. Miguel requests referrals to [facility] and [place] [facility], he thinks the SNFs which are rehab only would be best match for pt. Miguel was in [facility] not too long ago and states it was hard for pt to see the LTC resides at the "shelter." Chart review indicates in November 2017 pt went home with [facility]. Pt was also pre-arranged with [facility] prior to this surgery. D/c plan of care: Likely SNF Date Signed: 08/26/2018 02:07 PM Electronically Signed By:CROW Freeman
[2018-08-26] MEDS: ONDANSETRON DISINTEGRATING 4 MG TAB PO PRN (14:42)
[2018-08-26] MEDS: METHOCARBAMOL 750 MG TAB PO PRN (20:31)
[2018-08-27] MEDS: ACETAMINOPHEN 500 MG TAB PO SCH ×3 (05:45→22:47)
[2018-08-27] MEDS: GABAPENTIN 300 MG CAP PO SCH ×3 (05:46→21:25)
[2018-08-27] MEDS: LEVOTHYROXINE 100 MCG TAB PO SCH (05:46)
--- NOTE | 2018-08-27 07:30 | NEUSURGPN ---
Assessment/Plan: 83 y/o femlae s/p POD #2 status post Lumbar hardware removal L1-L5 and L5/S1 TLIF Continue ANNA to bulb suction Xrays demonstrate intact hardware LSO when OOB PT/OT DVT prophs: TEDs, SCDs, Lovenox okay Discussed with Dr. Carroll Please notify NS with any change in neuro/motor exam Subjective: Low back pain, Denies any new leg pain numbness, tingling or weakness Objective: NAD A&Ox3, but groggy MAEx4 5/5 and equal in BUE and BLE Silver dressing in place ANNA drain serosanguineous Catheter Insertion Date: 08/25/18 - Physician Discussed Patient with DrJosué: Jose Alberto Neurosurgery Physical Exam - Vitals, I&O, Labs I and O 08/26/18 08/27/18 08/28/18 05:59 05:59 05:59 Intake Total 1900 400 Output Total 485 1730 900 Balance 1415 -1330 -900 Weight 49.895 kg Intake: Oral (ml) 300 IV Intake (ml) 600 IV Infused (ml) 1300 100 Ns 1,000 ml @ 100 mls/hr 1200 IV CONT NIGEL Rx#: [id number] ceFAZolin 2 GM/DEXTROSE 100 100 100 ml @ 200 mls/hr IV Q8H [facility] Rx#:[id number] Output: Urine (ml) 150 1525 900 Bedside Commode 900 Catheter 150 600 Toilet 925 Estimated Blood Loss (ml) 300 ANNA Drain Output (ml) 35 205 Back Nik Luther 35 205 Other: Intake Quantity Yes Yes Sufficient Number of Voids Bedside Commode 1 Toilet 1 Vital Signs Temp Pulse Resp BP Pulse Ox 36.6 C 80 15 114/53 L 96 08/27/18 04:00 08/27/18 04:00 08/27/18 04:00 08/27/18 04:00 08/27/18 04:00 Laboratory Results 08/26/18 05:07 08/26/18 05:07 ICD10 Worksheet Patient Problems: Problems Problem Status Onset Fusion of lumbar spine Acute
[2018-08-27] MEDS: POLYETHYLENE GLYCOL 3350 17 GM PKT PO SCH ×3 (09:38→22:14)
[2018-08-27] MEDS: CHOLECALCIFEROL VIT D3 1,000 UNITS TAB PO SCH (09:38)
[2018-08-27] MEDS: SENNOSIDES/DOCUSATE SODIUM TAB PO SCH ×2 (09:40→22:13)
[2018-08-27] MEDS: ENOXAPARIN 40 MG/0.4 ML SYR SC SCH (09:40)
[2018-08-27] MEDS: CYANO/VITAMIN B12 1000 MCG TAB PO SCH (09:46)
[2018-08-27] MEDS: amLODIPine BESYLATE 5 MG TAB PO SCH (10:17)
[2018-08-27] MEDS: IRBESARTAN 150 MG TAB PO SCH (10:18)
--- NOTE | 2018-08-27 15:18 | ASMTCMCOM ---
CM Note CM Note Notes: Pt is accepted at [facility] and [facility]. As of this afternoon pt and kelsey Reaph did not have a SNF choice, Miguel reports he is leaning toward the [facility] [place] and will try to tour today. CM to follow. Date Signed: 08/27/2018 03:17 PM Electronically Signed By:CROW Freeman
[2018-08-27] MEDS: METHOCARBAMOL 750 MG TAB PO PRN (21:25)
[2018-08-27] MEDS: FAMOTIDINE 20 MG TAB PO SCH (21:25)
[2018-08-27] MEDS: traMADol 50 MG TAB PO PRN (22:28)
[2018-08-28] MEDS: METHOCARBAMOL 750 MG TAB PO PRN ×2 (04:25→21:28)
[2018-08-28] MEDS: traMADol 50 MG TAB PO PRN ×2 (04:28→21:28)
[2018-08-28] MEDS: ACETAMINOPHEN 500 MG TAB PO SCH ×3 (05:47→21:29)
[2018-08-28] MEDS: GABAPENTIN 300 MG CAP PO SCH ×2 (05:48→16:39)
[2018-08-28] MEDS: LEVOTHYROXINE 100 MCG TAB PO SCH (05:48)
--- NOTE | 2018-08-28 08:43 | NEUSURGPN ---
Assessment/Plan: 83 y/o femlae s/p POD #3 status post Lumbar hardware removal L1-L5 and L5/S1 TLIF Continue ANNA to bulb suction Xrays demonstrate intact hardware LSO when OOB PT/OT DVT prophs: TEDs, SCDs, Lovenox okay Discussed with Dr. Carroll Please notify NS with any change in neuro/motor exam Subjective: low back pain tolerable with medications. Objective: NAD A&Ox3, MAEx4 5/5 and equal in BUE and BLE Silver dressing in place ANNA drain serosanguineous Catheter Insertion Date: 08/25/18 - Physician Discussed Patient with DrJosué: Jose Alberto Neurosurgery Physical Exam - Vitals, I&O, Labs I and O 08/27/18 08/28/18 08/29/18 05:59 05:59 05:59 Intake Total 400 350 Output Total 1730 1463 Balance -1330 -1113 Intake: Oral (ml) 300 350 IV Infused (ml) 100 ceFAZolin 2 GM/DEXTROSE 100 100 ml @ 200 mls/hr IV Q8H [facility] Rx#:[id number] Output: Urine (ml) 1525 1400 Bedside Commode 900 Catheter 600 Toilet 925 500 ANNA Drain Output (ml) 205 63 Back Nik Luther 205 63 Other: Intake Quantity Yes Yes Sufficient Number of Voids Bedside Commode 1 Toilet 1 1 Number of Stools Incontinence 1 Toilet 1 Vital Signs Temp Pulse Resp BP Pulse Ox 36.4 C 78 15 121/56 H 99 08/28/18 07:37 08/28/18 07:37 08/28/18 07:37 08/28/18 07:37 08/28/18 07:37 Laboratory Results 08/26/18 05:07 08/26/18 05:07 ICD10 Worksheet Patient Problems: Problems Problem Status Onset Fusion of lumbar spine Acute
--- NOTE | 2018-08-28 08:46 | PDIAF ---
- Diagnosis Code Status: Full Code - Medication Management Discharge Medications: electronically signed and located in the Home Medication List. - Orders Services needed: Registered Nurse, Physical Therapy, Occupational Therapy Diet Recommendation: no restrictions on diet - Follow Up Care Current Providers and Referrals: Genevieve Yan MD [Primary Care Provider] -
[2018-08-28] MEDS: SENNOSIDES/DOCUSATE SODIUM TAB PO SCH ×2 (09:05→22:13)
[2018-08-28] MEDS: CYANO/VITAMIN B12 1000 MCG TAB PO SCH (09:05)
[2018-08-28] MEDS: CHOLECALCIFEROL VIT D3 1,000 UNITS TAB PO SCH (09:05)
[2018-08-28] MEDS: POLYETHYLENE GLYCOL 3350 17 GM PKT PO SCH ×3 (09:05→22:15)
[2018-08-28] MEDS: ENOXAPARIN 40 MG/0.4 ML SYR SC SCH (10:00)
[2018-08-28] MEDS: IRBESARTAN 150 MG TAB PO SCH (10:15)
[2018-08-28] MEDS: amLODIPine BESYLATE 5 MG TAB PO SCH (10:15)
--- NOTE | 2018-08-28 12:20 | ASMTLACE ---
LACE Length of stay for Answers: 4-6 days current admission Acuity / Level of Answers: Yes Care: Did the patient have an inpatient admission? Comorbidities - select Answers: Congestive heart failure all that apply Opioid dependence / Chronic pain Other Notes: HTN; Hypothyroid # of Emergency department Answers: 0 visits in the last 6 months Score: 14 Date Signed: 08/28/2018 12:19 PM Electronically Signed By:CROW Freeman
--- NOTE | 2018-08-28 12:23 | ASMTCMCOM ---
CM Note CM Note Notes: Pt medically stable for d/c to [facility], pt first choice SNF. Orders sent in Allscripts. Evelina with [facility] scheduled wc transport for 1800. BRIAN Mc to call report. Pt Miguel is updated. Date Signed: 08/28/2018 12:22 PM Electronically Signed By:CROW Freeman
[2018-08-28] MEDS ORDERED: NS 500 ML IV ONE (12:30)
--- NOTE | 2018-08-28 16:58 | ASMTCMCOM ---
CM Note CM Note Notes: Pt d/c canceled, [facility] notified. Evelina with [facility] reports if pt is medically ready tomorrow the CM should call [facility] early to secure a bed as they are almost full. Pt updated. CM to follow. Date Signed: 08/28/2018 04:57 PM Electronically Signed By:CROW Freeman
[2018-08-28 17:16] LABS: PLATELET COUNT 202 10^3/uL (150-400)
[2018-08-28] MEDS: FAMOTIDINE 20 MG TAB PO SCH (21:29)
[2018-08-29] MEDS: ONDANSETRON DISINTEGRATING 4 MG TAB PO PRN ×3 (03:49→17:32)
[2018-08-29] MEDS: ACETAMINOPHEN 500 MG TAB PO SCH ×3 (05:52→21:40)
[2018-08-29] MEDS: LEVOTHYROXINE 100 MCG TAB PO SCH (05:53)
[2018-08-29] MEDS: amLODIPine BESYLATE 5 MG TAB PO SCH (08:59)
[2018-08-29] MEDS: CHOLECALCIFEROL VIT D3 1,000 UNITS TAB PO SCH (09:00)
[2018-08-29] MEDS: IRBESARTAN 150 MG TAB PO SCH (09:02)
[2018-08-29] MEDS: CYANO/VITAMIN B12 1000 MCG TAB PO SCH (09:02)
[2018-08-29] MEDS: ENOXAPARIN 40 MG/0.4 ML SYR SC SCH (09:04)
[2018-08-29] MEDS: POLYETHYLENE GLYCOL 3350 17 GM PKT PO SCH ×3 (09:04→21:42)
[2018-08-29] MEDS: SENNOSIDES/DOCUSATE SODIUM TAB PO SCH ×2 (09:04→21:42)
--- NOTE | 2018-08-29 10:20 | NEUSURGPN ---
Assessment/Plan: Assessment/Plan: 83 y/o femlae s/p POD #4 status post Lumbar hardware removal L1-L5 and L5/S1 TLIF Continue ANNA to bulb suction- will come out at rehab tomorrow Xrays demonstrate intact hardware LSO when OOB PT/OT DVT prophs: TEDs, SCDs, Lovenox okay Discussed with Dr. Carroll Dispo- to Rehab today Please notify NS with any change in neuro/motor exam Subjective: Has incisional pain this morning but otherwise doing well. Leg pain is much improved. Objective: NAD A&Ox3, MAEx4 5/5 and equal in BUE and BLE Silver dressing in place ANNA drain serosanguineous Catheter Insertion Date: 08/25/18 - Physician Discussed Patient with Dr.: Parish Neurosurgery Physical Exam - Vitals, I&O, Labs I and O 08/28/18 08/29/18 08/30/18 05:59 05:59 05:59 Intake Total 350 Output Total 1463 925 Balance -1113 -925 Intake: Oral (ml) 350 Output: Urine (ml) 1400 900 Bedside Commode 900 500 Incontinence 400 Toilet 500 ANNA Drain Output (ml) 63 25 Back Nik Luther 63 25 Other: Intake Quantity Yes Yes Sufficient Number of Voids Bedside Commode 1 1 Incontinence 1 Toilet 1 2 Number of Stools Incontinence 1 Toilet 1 Vital Signs Temp Pulse Resp BP Pulse Ox 37.1 C 71 16 126/60 H 98 08/29/18 07:37 08/29/18 07:37 08/29/18 07:37 08/29/18 07:37 08/29/18 07:37 Laboratory Results 08/28/18 17:00 08/28/18 17:00 ICD10 Worksheet Patient Problems: Problems Problem Status Onset Fusion of lumbar spine Acute
--- NOTE | 2018-08-29 10:25 | PDIAF ---
- Diagnosis Code Status: Full Code - Medication Management Discharge Medications: electronically signed and located in the Home Medication List. - Orders Services needed: Registered Nurse, Physical Therapy, Occupational Therapy Diet Recommendation: no restrictions on diet Additional Instructions: Remove drain on Friday. Cover incision and drain hole site with dry gauze and tape. - Follow Up Care Current Providers and Referrals: Genevieve Yan MD [Primary Care Provider] -
[2018-08-29] MEDS: DIAZEPAM 2 MG TAB PO PRN ×2 (11:57→21:39)
--- NOTE | 2018-08-29 17:21 | ASMTCMCOM ---
CM Note CM Note Notes: Pt scheduled to discharge today to [facility], but became nauseous and had vomitting so was kept another night. Pt informed CM that she would prefer discharge to [facility], and the Center does have a bed available tomorrow - Friday. [facility] notified by phone. CM to follow D/C Plan: Friday to [facility]. Date Signed: 08/29/2018 05:20 PM Electronically Signed By:Gloria Michelle
[2018-08-29] MEDS: traMADol 50 MG TAB PO PRN (17:31)
[2018-08-29] MEDS: METHOCARBAMOL 750 MG TAB PO PRN (17:59)
[2018-08-29] MEDS: FAMOTIDINE 20 MG TAB PO SCH (21:40)
[2018-08-30] MEDS: traMADol 50 MG TAB PO PRN ×3 (00:02→08:34)
[2018-08-30] MEDS: METHOCARBAMOL 750 MG TAB PO PRN ×2 (00:05→06:01)
[2018-08-30] MEDS: DIAZEPAM 2 MG TAB PO PRN ×2 (03:48→11:39)
[2018-08-30] MEDS: ACETAMINOPHEN 500 MG TAB PO SCH ×2 (06:01→14:03)
[2018-08-30] MEDS: LEVOTHYROXINE 100 MCG TAB PO SCH (06:01)
[2018-08-30 07:30] VITALS: BP 127/63
[2018-08-30] MEDS: IRBESARTAN 150 MG TAB PO SCH (08:30)
[2018-08-30] MEDS: SENNOSIDES/DOCUSATE SODIUM TAB PO SCH (08:30)
[2018-08-30] MEDS: ENOXAPARIN 40 MG/0.4 ML SYR SC SCH (08:30)
[2018-08-30] MEDS: POLYETHYLENE GLYCOL 3350 17 GM PKT PO SCH (08:31)
[2018-08-30] MEDS: CHOLECALCIFEROL VIT D3 1,000 UNITS TAB PO SCH (08:31)
[2018-08-30] MEDS: CYANO/VITAMIN B12 1000 MCG TAB PO SCH (08:31)
[2018-08-30] MEDS: amLODIPine BESYLATE 5 MG TAB PO SCH (08:31)
[2018-08-30] MEDS: ONDANSETRON DISINTEGRATING 4 MG TAB PO PRN ×2 (09:07→14:52)
--- NOTE | 2018-08-30 09:32 | NEUSURGPN ---
Assessment/Plan: Assessment/Plan: 83 y/o femlae s/p POD #5 status post Lumbar hardware removal L1-L5 and L5/S1 TLIF Overall doing well, nausea more improved this morning. Wants to go to rehab Xrays demonstrate intact hardware LSO when OOB PT/OT DVT prophs: TEDs, SCDs, Lovenox okay Discussed with Dr. Carroll Dispo- to Rehab today Please notify NS with any change in neuro/motor exam Subjective: Has some back pain as expected still but nausea is improved this morning. Hopeful to go to rehab today. Objective: NAD A&Ox3, MAEx4 5/ and equal in BUE and BLE Silver dressing in place SILT Catheter Insertion Date: 08/25/18 - Physician Discussed Patient with DrJosué: Jose Alberto Neurosurgery Physical Exam - Vitals, I&O, Labs I and O 08/29/18 08/30/18 08/31/18 05:59 05:59 05:59 Intake Total 1150 Output Total 925 900 Balance -925 250 Intake: Oral (ml) 1150 Output: Urine (ml) 900 700 Bedside Commode 500 700 Incontinence 400 Emesis (ml) 200 ANNA Drain Output (ml) 25 Back Nik Luther 25 Other: Intake Quantity Yes Yes Sufficient Number of Voids Bedside Commode 1 Incontinence 1 1 Toilet 2 2 Number of Emesis 1 Occurrences Vital Signs Temp Pulse Resp BP Pulse Ox 36.7 C 71 16 127/63 H 93 08/30/18 07:28 08/30/18 07:28 08/30/18 07:28 08/30/18 07:28 08/30/18 07:28 Laboratory Results 08/28/18 17:00 08/28/18 17:00 ICD10 Worksheet Patient Problems: Problems Problem Status Onset Fusion of lumbar spine Acute
--- NOTE | 2018-08-30 12:36 | ASMTCMCOM ---
CM Note CM Note Notes: CM met with patient, discharge orders were received. Patient to discharge to [facility] today. CM described and delivered IM, patient signed for receipt, IM placed in back of chart. CM call to [facility] [phone], they will set up wheelchair transport, picking machine operator helper scheduled for 3:30pm. CM sent referral info and discharge via [employer]!. CM messaged BRIAN Valles with # for report [phone] & picking machine operator helper time. Patient to follow up as recommended, CM available to if any additional CM needs arise. Date Signed: 08/30/2018 12:35 PM Electronically Signed By:Ana Davis
--- NOTE | 2018-08-31 11:22 | ASDISCHSUM ---
Discharge Information Plan Status:SNF Medically Cleared to Leave:08/28/2018 Discharge Date:08/30/2018 02:53 PM D/C Disposition:[facility] Facility ADT D/C Disposition:[facility] Facility Projected Discharge Date:08/29/2018 12:00 PM Transportation at D/C:Wheelchair Van Discharge Delay Reason: Follow-Up Date:08/29/2018 12:00 PM Discharge Slot: Final Diagnosis:Lumbar stenosis, DJD Placement Information Referral Type:*Group Home/SNF Referral ID:[id number] Provider Name:[facility] Address 1:[address] [facility] Address 2: City:[place] Selection Factors: State:[place] Patient Contact Information Contact Name:ABRAHAM Relationship: Address:[address] [place] City:[place] Alternate Phone: State/Zip Code:[place] [address] Email: Financial Information Financial Class:Medicare Primary Plan Desc:MEDICARE INPATIENT Primary Plan Number:[id number] Secondary Plan Desc:[employer]/MDR SUPPLEMENT Secondary Plan Number:[id number] Assessment Information LACE LACE Length of stay for Answers: 4-6 days current admission Acuity / Level of Answers: Yes Care: Did the patient have an inpatient admission? Comorbidities - select Answers: Congestive heart failure all that apply Opioid dependence / Chronic pain Other Notes: HTN; Hypothyroid # of Emergency department Answers: 0 visits in the last 6 months Score: 14 Date Signed: 08/28/2018 12:19 PM Electronically Signed By:CROW Freeman [facility] CM Progress Note CM Note CM Note Notes: Pt had planned surgery for lumbar stenosis, DJD L5/S1. Pt resides with spouse. PT/OT rec SNF. Pt verbalizes she does not want to go to SNF. Pt Miguel is present at bedside, he reports this is pt's fourth back surgery, each time he has taken her home and been overwhelmed and unprepared, Miguel reports he will not be able to care for pt at home now. Pt dghtr is available to help in mornings but according to Miguel that is not enough and dghtr is unaware of how hard it has been to care for pt after these surgeries. Miguel reports he has observed cognitive decline in pt over the past decade and he seems really overwhelmed. Miguel requests referrals to [facility] and [facility], he thinks the SNFs which are rehab only would be best match for pt. Miguel was in [facility] not too long ago and states it was hard for pt to see the LTC resides at the "shelter." Chart review indicates in November 2017 pt went home with [facility]. Pt was also pre-arranged with [facility] prior to this surgery. D/c plan of care: Likely SNF Date Signed: 08/26/2018 02:07 PM Electronically Signed By:CROW Freeman [facility] Progress Note CM Note CM Note Notes: Pt is accepted at [facility] and the [facility]. As of this afternoon pt and kelsey Rivera did not have a SNF choice, Miguel reports he is leaning toward the [facility] [place] and will try to tour today. CM to follow. Date Signed: 08/27/2018 03:17 PM Electronically Signed By:CROW Freeman [facility] CM Progress Note CM Note CM Note Notes: Pt medically stable for d/c to [facility], pt first choice SNF. Orders sent in Allscripts. Evel[facility] with [facility] scheduled [facility]c transport for 1800. BRIAN Mc to call report. Pt dwain Rivera is updated. Date Signed: 08/28/2018 12:22 PM Electronically Signed By:CROW Freeman [facility] CM Progress Note CM Note CM Note Notes: Pt d/c canceled, [facility] notified. [facility] with [facility] reports if pt is medically ready tomorrow the CM should call [facility] early to secure a bed as they are almost full. Pt updated. CM to follow. Date Signed: 08/28/2018 04:57 PM Electronically Signed By:CROW Freeman [facility] CM Progress Note CM Note CM Note Notes: Pt scheduled to [facility] today [facility], but became nauseous and had vomitting so was kept another night. Pt informed CM that she would prefer discharge to [facility] [place], and the Center does have a bed available tomorrow - Friday. [facility] notified by phone. CM to follow D/C Plan: Friday to [facility] [place]. Date Signed: 08/29/2018 05:20 PM Electronically Signed By:Gloria Michelle [facility] CM Progress Note CM Note CM Note Notes: CM met with patient, discharge orders were received. Patient to discharge to [facility] [place] today. CM described and delivered IM, patient signed for receipt, IM placed in back of chart. CM call to [facility] [phone], they will set up wheelchair transport, pickle processor scheduled for 3:30pm. CM sent referral info and discharge via [employer]. CM messaged BRIAN Valles with # for report [phone] & pickle processor time. Patient to follow up as recommended, CM available to if any additional CM needs arise. Date Signed: 08/30/2018 12:35 PM Electronically Signed By:Ana Davis Intervention Information Intervention Type:*IM-Signed Date of Service:08/30/2018 11:41 AM Patient Type:Inpatient Staff Member:Ana Davis Hours: Discipline: Severity: Comment:CM delivered and described IM, patient signed for receipt. IM Placed in back of chart.
== END 2018-08-30 14:53 | DRG 455 ==
LOC: F3N 08-25 10:23
PROVIDERS: ADMIT Neurological Surgery; ATTEND Neurological Surgery
DX: M51.17 Intervertebral disc disorders with radiculopathy, lumbosacral region (principal); M51.26 Other intervertebral disc displacement, lumbar region; I10 Essential (primary) hypertension; I44.7 Left bundle-branch block, unspecified; E78.5 Hyperlipidemia, unspecified; E03.9 Hypothyroidism, unspecified; M32.9 Systemic lupus erythematosus, unspecified; K21.9 Gastro-esophageal reflux disease without esophagitis; M35.00 Sjogren syndrome, unspecified; Z98.1 Arthrodesis status
CPT/HCPCS: 97110-GP; 97116-GP; 97162-GP; 97165-GO; 97530-GP; 97535-GO; C1713; J0171; J0690; J1170; J1650; J2274; J2405; J2704; J3010; P9041

== ENCOUNTER → 2018-06-11 | Outpatient (CLI) | payer OTHER, MEDICARE | LOC: FIMAGING 14:10 | PROVIDERS: ATTEND Physical Medicine & Rehabilitation Neuromuscular Medicine | DX: M54.2 Cervicalgia (principal); I65.29 Occlusion and stenosis of unspecified carotid artery ==

== ENCOUNTER → 2018-12-02 | Outpatient (CLI) | payer OTHER, MEDICARE | LOC: FIMAGING 15:14 | PROVIDERS: ATTEND Physician Assistant Surgical | DX: M43.26 Fusion of spine, lumbar region (principal) ==